=== PATIENT | male | born 1985 | race African-American/Black ===

== ENCOUNTER 2022-06-20 14:07 | Emergency (ER) | payer OTHER ==
[~2022-06-20] VITALS: Ht 177.8 cm; Wt 80.0 kg
[2022-06-20 14:15] VITALS: BP 145/99
[2022-06-20] MEDS ORDERED: IBUPROFEN 600MG TABLET PO STA (14:51)
[2022-06-20] MEDS ORDERED: TETANUS, DIPHTHERIA, PERTUSSIS VAC/PF 0.5ML (>10YR OLD) IM ONE ×2 (15:15→17:15)
[2022-06-20] MEDS ORDERED: IBUP-2029 MT (16:27)
[2022-06-20] MEDS ORDERED: IBUPROFEN 600MG TABLET PO NR (17:15)
== END 2022-06-20 17:17 | disposition home or self-care (01) ==
LOC: ER 14:28
DX: R51.9 Headache, unspecified (principal); M54.50 Low back pain, unspecified
CPT/HCPCS: 72131; 90471; 90715; 99284